=== PATIENT | female | born 1970 | race Caucasian/White ===

== ENCOUNTER 2024-09-25 17:52 | Inpatient (IN) | payer MEDICARE ==
[~2024-09-25] VITALS: Ht 157.5 cm; Wt 55.8 kg
[2024-09-25 18:06] VITALS: TEMP 97.2
[2024-09-25] MEDS: SODIUM CHLORIDE 0.9% 1000ML 1,000 ML IV STA ×2 (19:05→20:11)
[2024-09-25] MEDS: ONDANSETRON HCL INJ 2MG/ML 2ML 2 MG/ML VIAL IV STA (19:05)
[2024-09-25 19:37] LABS: BASOPHILS # (AUTO) 0.1 (0.0-0.1); BASOPHILS % 0.2 % (0.0-1.0); EOSINOPHILS % 0.2 % (0.0-6.0); HEMATOCRIT 29.1 % (34.2-44.1); HEMOGLOBIN 10.4 g/dL (12.0-16.0); LYMPHOCYTES # (AUTO) 1.3 (1.0-3.2); LYMPHOCYTES % 5.7 % (18.0-39.1); MEAN CORPUSCULAR HEMOGLOBIN 29.3 pg (28-32); MEAN CORPUSCULAR HGB CONC 35.7 g/dL (31-35); MONOCYTES # (AUTO) 0.2 (0.2-0.8); MONOCYTES % 0.8 % (4.4-11.3); NEUTROPHILS # (AUTO) 20.2 (2.1-6.9); NEUTROPHILS % 88.4 % (38.7-80.0); PLATELET COUNT 308 x10e3/uL (140-360); RED BLOOD COUNT 3.55 x10e6/uL (3.6-5.1); RED CELL DISTRIBUTION WIDTH 19.1 % (11.7-14.4); WHITE BLOOD COUNT 22.91 x10e3/uL (4.8-10.8)
[2024-09-25 19:44] LABS: ALBUMIN 1.6 g/dL (3.5-5.0); ALBUMIN/GLOBULIN RATIO 0.5 (0.8-2.0); ANION GAP 15.8 mmol/L (8-16); CALCIUM 7.1 mg/dL (8.4-10.2); CREATININE, SERUM 1.04 mg/dL (0.57-1.11); TOTAL PROTEIN 4.7 g/dL (6.5-8.1)
[2024-09-25 19:47] LABS: POTASSIUM 1.8 mmol/L (3.5-5.1)
[2024-09-25 19:49] LABS: TROPONIN I 0.022 ng/mL (0-0.300)
[2024-09-25 19:51] VITALS: PULSE 46; RESP 18
[2024-09-25] MEDS ORDERED: DEXTROSE 50% SYRINGE 50 ML IV ONE (19:53)
[2024-09-25] MEDS ORDERED: IOPAMIDOL 370 MG/ML 100 ML INFUS..BTL INJ ONE (19:53)
[2024-09-25] MEDS: DEXTROSE 50% SYRINGE 50 ML IV STA (20:00)
[2024-09-25] MEDS: POTASSIUM CHLORIDE 20MEQ/100ML 100 ML IV STA (20:12)
[2024-09-25] MEDS ORDERED: Morphine 2mg Syringe 2 MG/ML SYR IV PRN ×2 (20:15→23:30)
[2024-09-25] MEDS ORDERED: SODIUM CHLORIDE 0.9% 1000ML 1,000 ML IV SCH (20:15)
[2024-09-25] MEDS ORDERED: ONDANSETRON HCL INJ 2MG/ML 2ML 2 MG/ML VIAL IV PRN (20:15)
[2024-09-25 22:40] VITALS: BP 147/90; PULSE 63; RESP 27; TEMP 97.1; O2SAT 96
[2024-09-25 22:41] VITALS: BP 147/90; PULSE 63; RESP 27; TEMP 97.1; O2SAT 96
[2024-09-25 23:00] VITALS: BP 77/56; PULSE 63; RESP 19; O2SAT 92
[2024-09-25 23:30] VITALS: BP 56/42; PULSE 48; RESP 17; O2SAT 95
[2024-09-25] MEDS ORDERED: ACETAMINOPHEN 325 MG TAB PO PRN (23:30)
[2024-09-25] MEDS: POTASSIUM CHLORIDE 20MEQ/100ML 100 ML IV SCH (23:35)
[2024-09-25] MEDS: SODIUM BICARBONATE 8.4% INJ 50 ML SYR IV STA (23:35)
[2024-09-25] MEDS: MEROPENEM 1 GM in SODIUM CHLORIDE 0.9% 100 ML IV ONE (23:49)
[2024-09-25] MEDS: SODIUM BICARBONATE 8.4% IV SCH (23:50)
[2024-09-25] MEDS: SODIUM CHLORIDE 0.45% IV SCH (23:50)
[2024-09-26] VITALS: BP 105/77; PULSE 51; RESP 24; TEMP 97.1; O2SAT 98
[2024-09-26 00:31] VITALS: BP 85/57; PULSE 48; RESP 24; O2SAT 96
[2024-09-26] MEDS: SODIUM CHLORIDE 0.9% 250ML 250 ML ONE (00:53)
[2024-09-26] MEDS: Vancomycin IV 1 GM in SODIUM CHLORIDE 0.9% 250ML 250 ML IV ONE (00:54)
[2024-09-26 01:30] VITALS: BP 124/92; PULSE 55; RESP 18; O2SAT 95
[2024-09-26 03:00] VITALS: BP 87/60; PULSE 56; RESP 18; TEMP 96.8; O2SAT 78
[2024-09-26] MEDS: DEXTROSE 50% SYRINGE 50 ML IV PRN (04:15)
[2024-09-26 06:12] LABS: BAND NEUTROPHILS % (MANUAL) 3 %; LYMPHOCYTES % (MANUAL) 3 % (19-48); METAMYELOCYTES % (MANUAL) 2 % (0-0); MONOCYTES % (MANUAL) 1 % (3.4-9.0); MYELOCYTES % (MANUAL) 1 % (0-0); NEUTROPHILS % (MANUAL) 90 % (40-74); NUCLEATED RED BLOOD CELLS 1
[2024-09-26 06:13] LABS: ANISOCYTOSIS MODERATE; HYPOCHROMASIA SLIGHT; PLATELET ESTIMATE ADEQUATE; PLATELET MORPHOLOGY COMMENT NORMAL
[2024-09-26 06:14] LABS: OVALOCYTES FEW
[2024-09-26 06:31] VITALS: PULSE 68; RESP 21; O2SAT 97
[2024-09-26 06:32] VITALS: BP 133/34; PULSE 62; RESP 33; O2SAT 96
[2024-09-26 07:11] LABS: BASOPHILS # (AUTO) 0.2 (0.0-0.1); BASOPHILS % 0.7 % (0.0-1.0); HEMATOCRIT 24.6 % (34.2-44.1); LYMPHOCYTES # (AUTO) 2.1 (1.0-3.2); LYMPHOCYTES % 9.2 % (18.0-39.1); MEAN CORPUSCULAR HEMOGLOBIN 29.3 pg (28-32); MEAN CORPUSCULAR HGB CONC 34.6 g/dL (31-35); MEAN CORPUSCULAR VOLUME 84.8 fL (81-99); MONOCYTES # (AUTO) 0.2 (0.2-0.8); MONOCYTES % 0.8 % (4.4-11.3); NEUTROPHILS % 83.5 % (38.7-80.0); PLATELET COUNT 228 x10e3/uL (140-360); RED CELL DISTRIBUTION WIDTH 19.7 % (11.7-14.4); WHITE BLOOD COUNT 22.82 x10e3/uL (4.8-10.8)
[2024-09-26 07:17] LABS: HEMOGLOBIN 8.5 g/dL (12.0-16.0)
[2024-09-26 07:41] LABS: ALBUMIN 1.3 g/dL (3.5-5.0); ALBUMIN/GLOBULIN RATIO 0.6 (0.8-2.0); ANION GAP 13.1 mmol/L (8-16); BILIRUBIN,TOTAL 0.8 mg/dL (0.2-1.2); CREATININE, SERUM 0.94 mg/dL (0.57-1.11); TOTAL PROTEIN 3.6 g/dL (6.5-8.1)
[2024-09-26 07:45] LABS: POTASSIUM 2.1 mmol/L (3.5-5.1)
[2024-09-26 07:47] LABS: TROPONIN I 0.009 ng/mL (0-0.300)
[2024-09-26 07:53] LABS: BAND NEUTROPHILS % (MANUAL) 5 %; LYMPHOCYTES % (MANUAL) 7 % (19-48); METAMYELOCYTES % (MANUAL) 3 % (0-0); MONOCYTES % (MANUAL) 1 % (3.4-9.0); NEUTROPHILS % (MANUAL) 84 % (40-74)
[2024-09-26 07:54] LABS: ANISOCYTOSIS MODERATE; PLATELET ESTIMATE ADEQUATE; PLATELET MORPHOLOGY COMMENT NORMAL; RBC MORPHOLOGY COMMENT ABNORMAL
[2024-09-26 07:57] LABS: HYPOCHROMASIA SLIGHT
[2024-09-26] MEDS: POTASSIUM CHLORIDE 20MEQ/100ML 100 ML IV SCH (08:33)
[2024-09-26] MEDS ORDERED: SODIUM BICARBONATE 8.4% VIAL 50 ML in SODIUM CHLORIDE 0.45% 1,000 ML IV SCH (09:00)
== END 2024-09-26 09:55 | disposition hospice, inpatient (51) | DRG 871 ==
LOC: ER 18:06 → ERHOLD 20:09 → ICU 21:30
PROVIDERS: ADMIT Internal Medicine; ATTEND Internal Medicine
PROC: 3E0333Z Introduction of Anti-inflammatory into Peripheral Vein, Percutaneous Approach (ICD-10-PCS; principal; 2024-09-25)
DX: A41.9 Sepsis, unspecified organism (principal); E43 Unspecified severe protein-calorie malnutrition; R65.21 Severe sepsis with septic shock; G93.41 Metabolic encephalopathy; K68.19 Other retroperitoneal abscess; R64 Cachexia; E87.0 Hyperosmolality and hypernatremia; T81.49XA Infection following a procedure, other surgical site, initial encounter; R62.7 Adult failure to thrive; E83.51 Hypocalcemia; Z51.5 Encounter for palliative care; Z66 Do not resuscitate; I10 Essential (primary) hypertension; E87.6 Hypokalemia; D73.3 Abscess of spleen; R53.81 Other malaise; G40.909 Epilepsy, unspecified, not intractable, without status epilepticus; F32.A Depression, unspecified; Z68.22 Body mass index [BMI] 22.0-22.9, adult; Z74.01 Bed confinement status; Z88.2 Allergy status to sulfonamides; Z88.8 Allergy status to other drugs, medicaments and biological substances; Y83.3 Surgical operation with formation of external stoma as the cause of abnormal reaction of the patient, or of later complication, without mention of misadventure at the time of the procedure
CPT/HCPCS: 36415; 71260; 74177; 80053; 82550; 82948; 83605; 83690; 84484; 85025; 87040; 87086; 87186; 93005; 94799; 99284; J2185; J2405; J2543; J3480; J7030; J7050; J7799; Q9967

== ENCOUNTER 2024-09-26 09:47 | Inpatient (IN) | payer MEDICARE, OTHER ==
[2024-09-26] MEDS: LORAZEPAM INJ 2 MG/ML VIAL IV SCH (10:00)
[2024-09-26] MEDS: Morphine 4mg INJECTION 4 MG/ML INJ IV SCH (10:00)
[2024-09-26] MEDS ORDERED: Morphine 4mg INJECTION 4 MG/ML INJ IV PRN (10:00)
[2024-09-26] MEDS ORDERED: LORAZEPAM INJ 2 MG/ML VIAL IV PRN (10:00)
[2024-09-26] MEDS ORDERED: ONDANSETRON HCL INJ 2MG/ML 2ML 2 MG/ML VIAL IV PRN (10:00)
[2024-09-26] MEDS ORDERED: ACETAMINOPHEN 650 MG SUPP PR PRN (10:00)
[2024-09-26] MEDS: SCOPOLAMINE 1 MG PATCH TOP SCH (13:03)
[2024-09-26 19:15] VITALS: BP 50/36; PULSE 53; RESP 28; O2SAT 96
[2024-09-26 20:10] VITALS: PULSE 56; RESP 18; O2SAT 97
[2024-09-27] VITALS (7 sets, daily range): BP systolic 41–59; BP diastolic 31–34; PULSE 53–62; RESP 12–18; TEMP 97.8; O2SAT 97–100
[2024-09-27] MEDS: COLLAGENASE 5 GM TUBE TP SCH (09:39)
[2024-09-28] VITALS: BP 43/33; PULSE 64; RESP 12; O2SAT 100
[2024-09-28 04:00] VITALS: BP 42/33; PULSE 66; RESP 10; O2SAT 96
[2024-09-28 07:45] VITALS: BP 41/29; PULSE 65; RESP 8; TEMP 97.3; O2SAT 96
[2024-09-28 08:44] VITALS: PULSE 62; RESP 18; O2SAT 95
[2024-09-28 09:27] VITALS: BP 54/28; PULSE 92; RESP 10; TEMP 90.7
[2024-09-28 13:34] VITALS: PULSE 65; RESP 18; O2SAT 96
== END 2024-09-28 10:50 | disposition expired | DRG 951 ==
LOC: ICU 09:47 → MED/SURG3 09-28 09:22
PROVIDERS: ADMIT Internal Medicine; ATTEND Internal Medicine
DX: Z51.5 Encounter for palliative care (principal); K68.19 Other retroperitoneal abscess; D73.3 Abscess of spleen; Z66 Do not resuscitate
CPT/HCPCS: 94799; 99252; J2060; J2270